=== PATIENT | female | born 1990 | race American Indian/Alaskan Native ===

== ENCOUNTER 2018-05-07 23:12 | Emergency (ER) | payer MEDICAID, OTHER ==
[2018-05-07 23:32] VITALS: BP 121/77
[2018-05-08 00:08] LABS: Basophils # (Auto) 0.1 K/mm3 (0.0-0.1); Basophils % (Auto) 1.3 % (0.0-1.8); Eosinophils # (Auto) 0.1 K/mm3 (0.0-0.4); Eosinophils % (Auto) 0.8 % (0.0-4.3); Hemoglobin 9.6 gm/dl (10.1-14.3); Lymphocytes # (Auto) 3.5 K/mm3 (1.2-5.4); Lymphocytes % (Auto) 38.2 % (13.4-35.0); Mean Corpuscular HGB Conc 31 % (30-34); Monocytes # (Auto) 0.7 K/mm3 (0.0-0.8); Monocytes % (Auto) 8.1 % (0.0-7.3); Platelet Count 329 K/mm3 (140-440); Red Blood Count 4.74 M/mm3 (3.65-5.03); Red Cell Distribution Width 17.9 % (13.2-15.2)
[2018-05-08 00:17] LABS: Mean Corpuscular Volume 66 fl (79-97)
[2018-05-08 00:25] LABS: BUN/Creatinine Ratio 17; Blood Urea Nitrogen 10 mg/dL (7-17); Calcium 9.2 mg/dL (8.4-10.2); Hemolysis Index 4
--- NOTE | 2018-05-08 04:25 | Emergency Department Report ---
ED General Adult HPI - General Chief complaint: Extremity Problem,Nontraumatic Stated complaint: LEFT LEG NUMBNESS Time Seen by Provider: 05/08/18 04:09 Source: patient Mode of arrival: Ambulatory Limitations: No Limitations - History of Present Illness Initial comments: Ms. Arias is a very pleasant 27 female who presents with generalized pain for 1-2 weeks. She awakens daily with diffuse joint pain. She has had malaise and dry skin. She has developed lower back pain. She has right lower leg numbness from thigh to foot. NO injury. No paralysis. Has had full physical in December 2017. Patient is worried about lupus with family hx. -: Gradual, week(s) (1-2) Location: back, lower extremity Severity scale (0 -10): 9 Quality: aching Consistency: constant Improves with: none Worsens with: none Associated Symptoms: malaise Treatments Prior to Arrival: none - Related Data Home Medications Medication Instructions Recorded Confirmed Last Taken Vits96/Iron Fum/Folic 1 each PO QDAY 01/02/13 06/13/13 06/12/13 [ Tablet] valACYclovir [Valtrex] 500 mg PO BID 06/07/13 06/13/13 06/12/13 Previous Rx's Medication Instructions Recorded Last Taken Type Ferrous Sulfate [Feosol 325 MG tab] 325 mg PO BID #60 tablet 06/13/13 Unknown Rx Ibuprofen [Motrin 600 MG tab] 800 mg PO Q8H PRN #30 tablet 06/13/13 Unknown Rx oxyCODONE /ACETAMINOPHEN [Percocet 1 tab PO Q4HR #30 tablet 06/13/13 Unknown Rx 5/325 mg] Allergies Allergy/AdvReac Type Severity Reaction Status Date / Time No Known Allergies Allergy Verified 06/13/13 04:52 ED Review of Systems ROS: Stated complaint: LEFT LEG NUMBNESS Other details as noted in HPI Comment: All other systems reviewed and negative Constitutional: malaise Musculoskeletal: back pain, arthralgia ED Past Medical Hx - Past Medical History Previous Medical History?: Yes Hx Hypertension: No Hx Congestive Heart Failure: No Hx Diabetes: No Hx Deep Vein Thrombosis: No Hx Renal Disease: No Hx Sickle Cell Disease: No Hx Seizures: No Hx Asthma: No Hx COPD: No Hx HIV: No - Surgical History Past Surgical History?: Yes Additional Surgical History: X2 - Family History Family history: connective tissue (grandmother with lupus), diabetes, hypertension - Social History Smoking Status: Never Smoker Substance Use Type: None - Medications Home Medications: Home Medications Medication Instructions Recorded Confirmed Last Taken Type Vits96/Iron Fum/Folic 1 each PO QDAY 01/02/13 06/13/13 06/12/13 History [ Tablet] valACYclovir [Valtrex] 500 mg PO BID 06/07/13 06/13/13 06/12/13 History Ferrous Sulfate [Feosol 325 MG tab] 325 mg PO BID #60 tablet 06/13/13 Unknown Rx Ibuprofen [Motrin 600 MG tab] 800 mg PO Q8H PRN #30 tablet 06/13/13 Unknown Rx oxyCODONE /ACETAMINOPHEN [Percocet 1 tab PO Q4HR #30 tablet 06/13/13 Unknown Rx 5/325 mg] ED Physical Exam - General Limitations: No Limitations General appearance: alert, in no apparent distress - Head Head exam: Present: atraumatic, normocephalic - Eye Eye exam: Present: normal appearance - ENT ENT exam: Present: mucous membranes moist - Neck Neck exam: Present: normal inspection, full ROM - Respiratory Respiratory exam: Present: normal lung sounds bilaterally. Absent: respiratory distress, wheezes, rales, rhonchi - Cardiovascular Cardiovascular Exam: Present: regular rate, normal rhythm, normal heart sounds. Absent: systolic murmur, diastolic murmur, rubs, gallop - GI/Abdominal GI/Abdominal exam: Present: soft, normal bowel sounds. Absent: distended, tenderness, guarding, rebound - Extremities Exam Extremities exam: Present: normal inspection - Back Exam Back exam: Present: normal inspection - Neurological Exam Neurological exam: Present: alert, oriented X3, CN II-XII intact, normal gait. Absent: motor sensory deficit - Psychiatric Psychiatric exam: Present: normal affect, normal mood - Skin Skin exam: Present: warm, dry, intact, normal color. Absent: rash ED Course Vital Signs 05/07/18 05/07/18 23:19 23:28 Temperature 97.6 F 97.6 F Pulse Rate 93 H 95 H Respiratory 16 Rate Blood Pressure 121/77 121/77 O2 Sat by Pulse 100 Oximetry ED Medical Decision Making - Lab Data Result diagrams: 05/07/18 23:48 05/07/18 23:48 Laboratory Results - last 24 hr 05/07/18 05/07/18 05/07/18 23:48 23:48 23:48 WBC 9.2 RBC 4.74 Hgb 9.6 L Hct 31.0 MCV 66 L MCH 20 L MCHC 31 RDW 17.9 H Plt Count 329 Lymph % (Auto) 38.2 H [place] % (Auto) 8.1 H Eos % (Auto) 0.8 Baso % (Auto) 1.3 Lymph # 3.5 [place] # 0.7 Eos # 0.1 Baso # 0.1 Seg Neutrophils % 51.6 Seg Neutrophils # 4.7 Sodium 136 L Potassium 3.6 Chloride 97.1 L Carbon Dioxide 26 Anion Gap 17 BUN 10 Creatinine 0.6 L Estimated GFR > 60 BUN/Creatinine Ratio 17 Glucose 107 H Calcium 9.2 HCG, Qual Negative - Medical Decision Making Diffuse joint and body pain with malaise. Right-sided leg numbness reported. Intact neurologically on exam. Differential diagnosis: Connective tissue disorder, sciatica, influenza, Basic labs ordered per triage protocol. No evidence of DVT. No evidence cellulitis. No history of trauma. Basic labs were reviewed were normal. Strongly recommended follow-up with her [facility] for possible rheumatological workup. Recommended [id number] analgesia such as ibuprofen and Tylenol. Critical care attestation.: If time is entered above; I have spent that time in minutes in the direct care of this critically ill patient, excluding procedure time. ED Disposition Clinical Impression: Joint pain, Right leg numbness, Back pain Disposition: - TO HOME OR SELFCARE Is pt being admited?: No Does the pt Need Aspirin: No Condition: Stable Instructions: Musculoskeletal Pain (ED) Referrals: ESTELA COVARRUBIAS JR, MD [Primary Care Provider] - 3-5 Days [facility] [Outside] - 3-5 Days Forms: Work/School Release Form(ED)
== END 2018-05-08 05:22 | disposition home or self-care (01) ==
LOC: ED 23:12
DX: M25.50 Pain in unspecified joint (principal); R20.0 Anesthesia of skin; M54.5 Low back pain
CPT/HCPCS: 36415; 80048; 84703; 85025; 99283

== ENCOUNTER 2018-12-20 22:35 | Emergency (ER) | payer MEDICAID ==
[2018-12-21] MEDS ORDERED: ACETAMINOPHEN 500 MG TAB PO ONE (00:02)
--- NOTE | 2018-12-21 00:13 | Emergency Department Report ---
ED ENT HPI - General Chief complaint: Dental/Oral Stated complaint: TOOTH PAIN Time Seen by Provider: 12/21/18 00:01 Source: patient Mode of arrival: Ambulatory Limitations: No Limitations - History of Present Illness Initial comments: Ms. Arias is a 28-year-old -[place] female who presents for recurrent dental pain. Pt has history of same for past 6 months. Patient states she has dental appointment in 1 week however she ran out of pain medication. pain as 5/10 left lower aching. there is no facial swelling, no gum swelling ,no throat or ear pain. Patient is tolerating by mouth intake without problems. MD complaint: tooth pain Onset/Timin -: month(s) Location: tooth # (18) Severity: moderate Severity scale (0 -10): 5 Quality: aching Consistency: constant Improves with: none Worsens with: eating Associated Symptoms: toothache. denies: gum swelling, pain with swallowing, sore throat, tinnitus - Related Data Home Medications Medication Instructions Recorded Confirmed Last Taken Vits96/Iron Fum/Folic 1 each PO QDAY 01/02/13 06/13/13 06/12/13 [ Tablet] valACYclovir [Valtrex] 500 mg PO BID 06/07/13 06/13/13 06/12/13 Previous Rx's Medication Instructions Recorded Last Taken Type Ferrous Sulfate [Feosol 325 MG tab] 325 mg PO BID #60 tablet 06/13/13 Unknown Rx Ibuprofen [Motrin 600 MG tab] 800 mg PO Q8H PRN #30 tablet 06/13/13 Unknown Rx oxyCODONE /ACETAMINOPHEN [Percocet 1 tab PO Q4HR #30 tablet 06/13/13 Unknown Rx 5/325 mg] Acetaminophen [Acetaminophen TAB] 1,000 mg PO Q6HR PRN #30 tablet 12/21/18 Unknown Rx Amoxicillin [Trimox CAP] 500 mg PO Q8H #30 capsule 12/21/18 Unknown Rx Chlorhexidine Mouthwash [Peridex] 15 ml MM BID #1 bottle 12/21/18 Unknown Rx Allergies Allergy/AdvReac Type Severity Reaction Status Date / Time naproxen [From Naprosyn] Allergy Unknown Verified 12/20/18 22:38 ED Dental HPI - General Chief complaint: Dental/Oral Stated complaint: TOOTH PAIN Time Seen by Provider: 12/21/18 00:01 Source: patient Mode of arrival: Ambulatory Limitations: No Limitations - Related Data Home Medications Medication Instructions Recorded Confirmed Last Taken Vits96/Iron Fum/Folic 1 each PO QDAY 01/02/13 06/13/13 06/12/13 [ Tablet] valACYclovir [Valtrex] 500 mg PO BID 06/07/13 06/13/13 06/12/13 Previous Rx's Medication Instructions Recorded Last Taken Type Ferrous Sulfate [Feosol 325 MG tab] 325 mg PO BID #60 tablet 06/13/13 Unknown Rx Ibuprofen [Motrin 600 MG tab] 800 mg PO Q8H PRN #30 tablet 06/13/13 Unknown Rx oxyCODONE /ACETAMINOPHEN [Percocet 1 tab PO Q4HR #30 tablet 06/13/13 Unknown Rx 5/325 mg] Acetaminophen [Acetaminophen TAB] 1,000 mg PO Q6HR PRN #30 tablet 12/21/18 Unknown Rx Amoxicillin [Trimox CAP] 500 mg PO Q8H #30 capsule 12/21/18 Unknown Rx Chlorhexidine Mouthwash [Peridex] 15 ml MM BID #1 bottle 12/21/18 Unknown Rx Allergies Allergy/AdvReac Type Severity Reaction Status Date / Time naproxen [From Naprosyn] Allergy Unknown Verified 12/20/18 22:38 ED Review of Systems ROS: Stated complaint: TOOTH PAIN Other details as noted in HPI Constitutional: denies: chills, fever Eyes: denies: eye pain, eye discharge, vision change ENT: dental pain. denies: ear pain, throat pain Respiratory: denies: cough, shortness of breath, wheezing Cardiovascular: denies: chest pain, palpitations Endocrine: no symptoms reported Gastrointestinal: denies: abdominal pain, nausea, diarrhea Genitourinary: denies: urgency, dysuria, discharge Musculoskeletal: denies: back pain, joint swelling, arthralgia Skin: denies: rash, lesions Neurological: denies: headache, weakness, paresthesias Psychiatric: denies: anxiety, depression Hematological/Lymphatic: denies: easy bleeding, easy bruising ED Past Medical Hx - Past Medical History Hx Hypertension: No Hx Congestive Heart Failure: No Hx Diabetes: No Hx Deep Vein Thrombosis: No Hx Renal Disease: No Hx Sickle Cell Disease: No Hx Seizures: No Hx Asthma: No Hx COPD: No Hx HIV: No - Surgical History Additional Surgical History: X2 - Social History Smoking Status: Never Smoker Substance Use Type: None - Medications Home Medications: Home Medications Medication Instructions Recorded Confirmed Last Taken Type Vits96/Iron Fum/Folic 1 each PO QDAY 01/02/13 06/13/13 06/12/13 History [ Tablet] valACYclovir [Valtrex] 500 mg PO BID 06/07/13 06/13/13 06/12/13 History Ferrous Sulfate [Feosol 325 MG tab] 325 mg PO BID #60 tablet 06/13/13 Unknown Rx Ibuprofen [Motrin 600 MG tab] 800 mg PO Q8H PRN #30 tablet 06/13/13 Unknown Rx oxyCODONE /ACETAMINOPHEN [Percocet 1 tab PO Q4HR #30 tablet 06/13/13 Unknown Rx 5/325 mg] Acetaminophen [Acetaminophen TAB] 1,000 mg PO Q6HR PRN #30 tablet 12/21/18 Unknown Rx Amoxicillin [Trimox CAP] 500 mg PO Q8H #30 capsule 12/21/18 Unknown Rx Chlorhexidine Mouthwash [Peridex] 15 ml MM BID #1 bottle 12/21/18 Unknown Rx ED Physical Exam - General Limitations: No Limitations General appearance: alert, in no apparent distress - Head Head exam: Present: atraumatic, normocephalic - Eye Eye exam: Present: normal appearance, EOMI - ENT ENT exam: Present: mucous membranes moist, TM's normal bilaterally, normal external ear exam - Expanded ENT Exam Expanded Teeth exam: Present: dental caries, dental tenderness # (18) - Neck Neck exam: Present: normal inspection - Respiratory Respiratory exam: Present: normal lung sounds bilaterally. Absent: respiratory distress, wheezes, stridor - Cardiovascular Cardiovascular Exam: Present: regular rate, normal rhythm, normal heart sounds. Absent: systolic murmur, diastolic murmur, rubs, gallop - GI/Abdominal GI/Abdominal exam: Present: soft, normal bowel sounds. Absent: distended, tenderness, bruit, hernia - Rectal Rectal exam: Present: deferred - Extremities Exam Extremities exam: Present: normal inspection - Back Exam Back exam: Present: normal inspection, full ROM. Absent: tenderness, CVA tenderness (R), CVA tenderness (L), rash noted - Neurological Exam Neurological exam: Present: alert, oriented X3, CN II-XII intact, normal gait - Psychiatric Psychiatric exam: Present: normal affect, normal mood - Skin Skin exam: Present: warm, dry, intact, normal color. Absent: rash ED Course Vital Signs 12/20/18 22:42 Temperature 98.3 F Pulse Rate 100 H Respiratory 20 Rate Blood Pressure 134/79 O2 Sat by Pulse 100 Oximetry ED Medical Decision Making - Medical Decision Making this is a straight forward toothache ,no trismus no facial or gum swelling no focal abscess, plan amoxicillin, tylenol, preidex follow up with dentist next weeka as scheduled, pt verbalized agreement and understanding of same. pt dc 'd to home in stable condition at this time. Critical care attestation.: If time is entered above; I have spent that time in minutes in the direct care of this critically ill patient, excluding procedure time. ED Disposition Clinical Impression: Pain, dental Disposition: DC-01 TO HOME OR SELFCARE Is pt being admited?: No Does the pt Need Aspirin: No Condition: Stable Instructions: Dental Caries (ED) Prescriptions: Acetaminophen [Acetaminophen TAB] 1,000 mg PO Q6HR PRN #30 tablet PRN Reason: pain Chlorhexidine Mouthwash [Peridex] 15 ml MM BID #1 bottle Amoxicillin [Trimox CAP] 500 mg PO Q8H #30 capsule Referrals: [facility] [Outside] - 3-5 Days Forms: Work/School Release Form(ED) Time of Disposition: 00:15
[2018-12-21 01:15] VITALS: BP 128/87
== END 2018-12-21 00:45 | disposition home or self-care (01) ==
LOC: ED 22:35
DX: K08.89 Other specified disorders of teeth and supporting structures (principal); Z79.899 Other long term (current) drug therapy
CPT/HCPCS: 99282

== ENCOUNTER 2019-01-08 12:14 | Emergency (ER) | payer MEDICAID ==
--- NOTE | 2019-01-08 13:10 | Emergency Department Report ---
Chief Complaint: Dental/Oral Stated Complaint: ABSCESS Time Seen by Provider: 01/08/19 13:08 - HPI History of Present Illness: This is a 28 y.o. F. that presents to the ER with right sided upper gum pain for 3 weeks. Patient states she was started on antibiotics 2 weeks ago which she completed. Past history of similar symptoms for 6 months. Patient states she have a dental appointment in 2 weeks. Denies facial swelling, dysphagia, no gum swelling, sore throat, or ear pain. - Exam Vital Signs: Vital Signs 01/08/19 01/08/19 12:58 14:47 Temperature 97.7 F Pulse Rate 106 H 96 H Respiratory 18 Rate Blood Pressure 147/88 O2 Sat by Pulse 100 98 Oximetry MSE screening note: Focused history and physical exam performed. Due to findings the following was ordered: ED Medical Decision Making - Medical Decision Making Patient examined by me and stable. No distress noted. Vitals stable. There is a dental caries #14, negative gingival swelling, trismus, no facial swelling or abscess. Instructed to continue symptomatic relief with [id number] medication. Instructed to follow-up with a dentist. Given a list of emergency dental clinics for follow up. Discharged home stable. ED Disposition for MSE Clinical Impression: Pain, dental Disposition: - TO HOME OR SELFCARE Is pt being admited?: No Condition: Stable Instructions: Toothache (ED) Referrals: [facility] [Outside] - 3-5 Days [facility] [Outside] - 3-5 Days [facility] [Outside] - 3-5 Days Time of Disposition: 14:47
[2019-01-08 13:12] VITALS: BP 147/88
== END 2019-01-08 14:55 | disposition home or self-care (01) ==
LOC: ED 12:14
DX: K02.9 Dental caries, unspecified (principal); Z88.8 Allergy status to other drugs, medicaments and biological substances
CPT/HCPCS: 99281